=== PATIENT | male | born 1990 | race Caucasian/White ===

== ENCOUNTER 2017-12-20 01:26 | Emergency (ER) | payer OTHER ==
[~2017-12-20] VITALS: Ht 177.8 cm; Wt 77.3 kg
[2017-12-20 01:30] VITALS: BP 149/90; PULSE 107; TEMP 98
== END 2017-12-20 02:50 | disposition left against medical advice (07) ==
LOC: COL.ER 01:26
DX: S09.90XA Unspecified injury of head, initial encounter (principal); S02.2XXA Fracture of nasal bones, initial encounter for closed fracture; S01.512A Laceration without foreign body of oral cavity, initial encounter; Y04.8XXA Assault by other bodily force, initial encounter
CPT/HCPCS: J0690